=== PATIENT | male | born 1970 | race Caucasian/White ===

== ENCOUNTER 2017-02-12 17:51 | Emergency (ER) | payer OTHER ==
[2017-02-12] MEDS ORDERED: DEXAMETHASONE SOD PHOS INJ 10 MG/1 ML VIAL IM ONE (18:39)
[2017-02-12] MEDS ORDERED: KETOROLAC TROMETHAMINE 60 MG/2 ML SDV IM ONE (18:39)
--- NOTE | 2017-02-12 18:55 | ER Document Report ---
ED Hip Pain/Injury - General Chief Complaint: Hip Pain Stated Complaint: RIGHT SIDE HIP PAIN Time Seen by Provider: 02/12/17 18:24 Notes: 46 YO male c/o left hip pain x 3 weeks. pt reports he mis-stepped going into his den, foot slipped and he kee his left hip. pt denies any impact to hip or back. Since this incident, he has had pain to left hip worse with sitting and bending. pt reports that after straining for BM today, hip pain became excruciatingly painful to move or walk. pt reports some relief when counter pressure is applied to outer hip and when left leg is extended. pt is ambulatory with antalgic gait and using a cane for support. denies radiculopathy or paresthesia, bowel/bladder dysfunction. no fever. pt has hx/ o lumbar DDD with sciatica. he reports this pain is differnet than his typical pain. TRAVEL OUTSIDE OF THE [place] IN LAST 30 DAYS: No - HPI Patient complains to provider of: Pain Occurred: Other - 3 wks but acutely worse today Onset/Duration: Persistent, Worse Quality of pain: Sharp Pain Level: 5 Symptoms since fall: None Skin Color: Normal Skin Temperature: Warm Rotation of extremity: None Pain with palpation of the pelvis: No Associated Symptoms: denies: Loss of control/bowel, Loss of control/bladder, Motor loss, Sensory loss - Related Data Allergies/Adverse Reactions: No Known Allergies Allergy (Unverified 02/12/17 17:58) Past Medical History - General Information source: Patient - Social History Smoking Status: Never Smoker Chew tobacco use (# tins/day): No Frequency of alcohol use: None Drug Abuse: None Lives with: Family Family History: Reviewed & Not Pertinent Patient has suicidal ideation: No Patient has homicidal ideation: No - Past Medical History Cardiac Medical History: Reports: Hx Hypertension Pulmonary Medical History: Reports: Hx Asthma Renal/ Medical History: Reports: Hx Kidney Stones. Denies: Hx Peritoneal Dialysis Musculoskeltal Medical History: Reports Other - Degenerative Disc Disease, Osteoarthritis Past Surgical History: Reports: Hx Cholecystectomy, Hx Orthopedic Surgery - cervical fusion Review of Systems - Review of Systems Constitutional: No symptoms reported EENT: No symptoms reported Cardiovascular: No symptoms reported Respiratory: No symptoms reported Gastrointestinal: No symptoms reported Genitourinary: No symptoms reported Male Genitourinary: No symptoms reported Musculoskeletal: See HPI Skin: No symptoms reported Hematologic/Lymphatic: No symptoms reported Neurological/Psychological: No symptoms reported Physical Exam - Vital signs Vitals: Temp Pulse Resp BP Pulse Ox 98.0 F 79 18 141/79 H 97 02/12/17 17:58 02/12/17 17:58 02/12/17 17:58 02/12/17 17:58 02/12/17 17:58 Interpretation: Normal - General General appearance: Appears well, Alert - HEENT Head: Normocephalic, Atraumatic Eyes: Normal Pupils: PERRL - Respiratory Respiratory status: No respiratory distress Chest status: Nontender Breath sounds: Normal Chest palpation: Normal - Cardiovascular Rhythm: Regular Heart sounds: Normal auscultation Murmur: No - Abdominal Inspection: Normal Distension: No distension Bowel sounds: Normal Tenderness: Nontender Organomegaly: No organomegaly - Back Back: Normal, Nontender - Extremities General upper extremity: Normal inspection - focal lateral hip pain near the greater trochanter, +Tenderness to palpation of the greater trochanter. + painful right hip flexion, internal and external hip rotation, Nontender, Normal color, Normal ROM, Normal temperature Hip: Tender - Neurological Neuro grossly intact: Yes Cognition: Normal Orientation: AAOx4 [place] Coma Scale Eye Opening: Spontaneous [place] Coma Scale Verbal: Oriented [place] Coma Scale Motor: Obeys Commands [place] Coma Scale Total: 15 Speech: Normal Motor strength normal: LUE, RUE, LLE, RLE Sensory: Normal - Psychological Associated symptoms: Normal affect, Normal mood - Skin Skin Temperature: Warm Skin Moisture: Dry Skin Color: Normal Course - Re-evaluation Re-evalutation: 02/12/17 19:45 pt's pain improved after medication. able to sit more comfortably. walking improved. xray negative. results reviewed with patient. pt is stable for discharge with primary care. 02/12/17 20:16 - Vital Signs Vital signs: Temp Pulse Resp BP Pulse Ox 98.1 F 76 20 120/70 97 02/12/17 19:50 02/12/17 19:50 02/12/17 19:50 02/12/17 19:50 02/12/17 19:50 Discharge - Discharge Clinical Impression: Acute right hip pain Condition: Stable Disposition: HOME, SELF-CARE Instructions: Bursitis ([facility]), Ice Packs ([facility]), Steroid Medication Injection, Steroid Medication, Toradol Injection ([facility]), Ultram ([facility]) Additional Instructions: Your hip xray was negative today for acute injury Your history and physical are consistent with a greater trochanteric bursitis your treatment focuses on reducing the inflammation within that hip joint please take medications as prescribed apply ice to hip follow up with your primary care for further evaluation and treatment Prescriptions: Prednisone 20 mg PO BID #20 tablet Tramadol HCl [Ultram 50 mg Tablet] 50 mg PO ASDIR PRN #20 tablet PRN Reason:
--- NOTE | 2017-02-12 19:17 | RADIOLOGY REPORT (SQ) ---
EXAM DESCRIPTION: HIP RIGHT AP/LATERAL COMPLETED DATE/TIME: 02/12/2017 7:07 pm REASON FOR STUDY: right hip pain COMPARISON: None. NUMBER OF VIEWS: Two views. TECHNIQUE: AP pelvis and additional frog-leg view of the right hip. LIMITATIONS: None. FINDINGS: MINERALIZATION: Normal. RIGHT HIP: No fracture or dislocation. No worrisome bone lesions. LEFT HIP: No fracture or dislocation. No worrisome bone lesions. PUBIS AND ISCHIUM: No fracture. PELVIS: No fracture. SACRUM: No fracture or dislocation. No worrisome bone lesions. LOWER LUMBAR SPINE: No fracture or dislocation. No worrisome bone lesions. No significant disc disea se. SOFT TISSUES: No findings. OTHER: No other significant finding. IMPRESSION: NEGATIVE STUDY OF THE RIGHT HIP. NO RADIOGRAPHIC EVIDENCE OF ACUTE INJURY. TECHNICAL DOCUMENTATION: JOB ID: [id number] [employer]- All Rights Reserved
[2017-02-12 19:50] VITALS: BP 120/70
== END 2017-02-12 19:50 | disposition home or self-care (01) ==
LOC: ER 17:51
DX: M25.551 Pain in right hip (principal); W18.49XA Other slipping, tripping and stumbling without falling, initial encounter
CPT/HCPCS: 99283; 96372; 73502; J1885; J1100